=== PATIENT | female | born 1990 | race Caucasian/White ===

== ENCOUNTER 2016-08-05 14:31 | Inpatient (IN) | payer OTHER ==
[2016-08-05 14:55] VITALS: BMI 22.8
--- NOTE | 2016-08-05 16:40 | HP ---
CIWA Score - CIWA Score Nausea/Vomitin Muscle Tremors: 4-Moderate,w/Arms Extend Anxiety: 4-Mod. Anxious/Guarded Agitation: 4-Moderately Restless Paroxysmal Sweats: 3 Orientation: 2-Disoriented Date<2 days Tacttile Disturbances: 0-None Auditory Disturbances: 0-None Visual Disturbances: 0-None Headache: 0-None Present CIWA-Ar Total Score: 20 Admission ROS BHS - HPI Chief Complaint: Withdrawal sx. Allergies/Adverse Reactions: Allergies Allergy/AdvReac Type Severity Reaction Status Date / Time Fish Containing Products Allergy Unknown Verified 08/05/16 16:22 [Fish Product Derivatives] History of Present Illness: 26 y/o woman with hx. of benzodiazepine dependence is admitted for detox.Pt. has been in previous detox & currently attends [facility] in [facility] and takes methadone 155mg daily. Exam Limitations: No Limitations - Ebola screening Have you traveled outside of the country in the last 21 days: No Have you had contact with anyone from an Ebola affected area: No Have you been sick,other than usual withdrawal symptoms: No Do you have a fever: No - Review of Systems Constitutional: Diaphoresis EENT: reports: No Symptoms Reported Respiratory: reports: No Symptoms reported Cardiac: reports: No Symptoms Reported GI: reports: Nausea, Abdominal cramping : reports: No Symptoms Reported Musculoskeletal: reports: Back Pain Integumentary: reports: Sweating Neuro: reports: Tremors Endocrine: reports: No Symptoms Reported Hematology: reports: No Symptoms Reported Psychiatric: reports: No Sypmtoms Reported Other Systems: Reviewed and Negative Patient History - Patient Medical History Hx Anemia: No Hx Asthma: No Hx Chronic Obstructive Pulmonary Disease (COPD): No Hx Cancer: No Hx Cardiac Disorders: No Hx Congestive Heart Failure: No Hx Hypertension: No Hx Hypercholesterolemia: No Hx Pacemaker: No HX Cerebrovascular Accident: No Hx Seizures: No Hx Dementia: No Hx Diabetes: No Hx Gastrointestinal Disorders: No Hx Liver Disease: No Hx Genitourinary Disorders: No Hx Sexually Transmitted Disorders: No Hx Renal Disease (ESRD): No Hx Thyroid Disease: No Hx Human Immunodeficiency Virus (HIV): No Hx Hepatitis C: No Hx Depression: Yes (anxiety, panic attacks) Hx Suicide Attempt: No Hx Bipolar Disorder: No Hx Schizophrenia: No - Patient Surgical History Past Surgical History: Yes Hx Neurologic Surgery: No Hx Cataract Extraction: No Hx Cardiac Surgery: No Hx Lung Surgery: No Hx Breast Surgery: No Hx Breast Biopsy: No Hx Abdominal Surgery: No Hx Appendectomy: No Hx Cholecystectomy: No Hx Genitourinary Surgery: No Hx Section: No Hx Orthopedic Surgery: No Hx Hysterectomy: No Other Surgical History: tonsils removed 2002 Anesthesia Reaction: No - PPD History Previous Implant?: Yes Documented Results: Negative w/proof Date: 11/17/15 Results: 0 mm PPD to be Administered?: No - Reproductive History Last Menstrual Period: 07/12/16 Patient : No - Smoking Cessation Smoking history: Current every day smoker Have you smoked in the past 12 months: Yes Aproximately how many cigarettes per day: 10 Hx Chewing Tobacco Use: No Initiated information on smoking cessation: Yes 'Breaking Loose' booklet given: 08/05/16 - Substance & Tx. History Hx Alcohol Use: No Hx Substance Use: Yes Substance Use Type: Cocaine, Prescribed Hx Substance Use Treatment: Yes (detox) - Substances Abused Alprazolam (Xanax) Route: Oral Frequency: Daily Amount used: 16mg Age of first use: 19 Date of Last Use: 08/04/16 Crack Route: Smoking Frequency: Daily Amount used: 2 bags Age of first use: 20 Date of Last Use: 08/04/16 Family Disease History - Family Disease History Family Disease History: Heart Disease: Mother (hypertension), Other: Father ( opioid dependence on agonist therapy), Sister (methadone) Admission Physical Exam BHS - Vital Signs Vital Signs: Vital Signs - 24 hr 08/05/16 14:53 Temperature 99.5 F Pulse Rate 143 H Respiratory 20 Rate Blood Pressure 136/81 - Physical General Appearance: Yes: Tremorous, Sweating, Anxious HEENTM: Yes: Nasal Congestion Respiratory: Yes: Chest Non-Tender, Lungs Clear, Normal Breath Sounds Neck: Yes: Supple Breast: Yes: Breast Exam Deferred Cardiology: Yes: Regular Rate, S1, S2 Abdominal: Yes: Normal Bowel Sounds, Non Tender, Flat, Soft Genitourinary: Yes: Within Normal Limits Back: Yes: Within Normal Limits Musculoskeletal: Yes: Within Normal Limits Extremities: Yes: Tremors Neurological: Yes: Fully Oriented, Alert Integumentary: Yes: Diaphoresis Lymphatic: Yes: Within Normal Limits - Diagnostic (1) Opioid dependence on agonist therapy Current Visit: Yes Status: Acute (2) Sedative, hypnotic or anxiolytic dependence with withdrawal, uncomplicated Current Visit: Yes Status: Acute Cleared for Admission [facility] - Detox or Rehab [facility] Level of Care: Medically Managed Detox Regimen/Protocol: Valium [facility] Breath Alcohol Content Breath Alcohol Content: 0 Urine Pregancy Test - Result Urine Test Results: Negative- NO Line Present Urine Drug Screen - Results Drug Screen Negative: No Urine Drug Screen Results: AMADOU-Cocaine, BZO-Benzodiazepines, MTD-Methadone, TCA- Tricyclic Antidepress
[2016-08-05] MEDS ORDERED: NICOTINE POLACRILEX 2 MG GUM BC PRN (16:49)
[2016-08-05] MEDS ORDERED: guaiFENesin/D-METHORPHAN HB 10 ML UNIT-DOSE CUPS PO PRN (16:49)
[2016-08-05] MEDS ORDERED: MENTHOL/PHENOL 1 EACH UD MM PRN (16:49)
[2016-08-05] MEDS ORDERED: MAGNESIUM HYDROX 2400MG/30ML ORAL SUSPENSION 30 ML CUP PO PRN (16:49)
[2016-08-05] MEDS ORDERED: P-EPHED 60MG/TRIPROLIDI 2.5MG TABLET PO PRN (16:49)
[2016-08-05] MEDS ORDERED: MAGNESIUM CITRATE 300 ML BOTTLE PO PRN (16:49)
[2016-08-05] MEDS ORDERED: ACETAMINOPHEN 325 MG TABLET (FP) PO PRN (16:49)
[2016-08-05] MEDS ORDERED: IBUPROFEN 400 MG TABLET (FP) PO PRN (16:49)
[2016-08-05] MEDS ORDERED: diazePAM 5 MG TABLET PO ONE (16:49)
[2016-08-05] MEDS: NICOTINE 21 MG/24 HOURS TOPICAL PATCH TD SCH (17:53)
[2016-08-05] MEDS: THIAMINE HCL 100 MG TABLET (FP) PO SCH (22:30)
[2016-08-05] MEDS: diphenhydrAMINE HCL 50 MG CAPSULE PO PRN (22:30)
[2016-08-05] MEDS: diazePAM 5 MG TABLET PO SCH (22:31)
[2016-08-06] MEDS: diazePAM 5 MG TABLET PO SCH ×3 (05:47→22:27)
[2016-08-06] MEDS ORDERED: METHADONE HCL 5 MG TABLET (FOR DETOX USE ONLY) PO STA (09:06)
[2016-08-06 09:20] LABS: MCH 29.4 pg (25.7-33.7); MCHC 33.4 g/dl (32.0-36.0); MEAN CELL VOLUME 87.8 fl (80-96); PLATELET COUNT 202 K/MM3 (134-434); RDW 14.6 % (11.6-15.6); WHITE BLOOD COUNT 7.3 K/mm3 (4.0-10.0)
[2016-08-06 09:29] LABS: ALBUMIN 3.4 g/dl (3.4-5.0); ANION GAP 7 (8-16); BILIRUBIN,TOTAL 0.1 mg/dL (0.2-1.0); CALCIUM 8.7 mg/dL (8.5-10.1); CO2 30 mmol/L (21-32); COCKROFT - GAULT 110.9165; CREATININE 0.7 mg/dL (0.55-1.02); GLUCOSE,RANDOM 77 mg/dL (74-106); SGOT/AST 7 U/L (15-37); SGPT/ALT 15 U/L (12-78); TOT PROT 6.2 g/dl (6.4-8.2)
[2016-08-06 09:30] LABS: ALK PHOS 55 U/L (45-117)
[2016-08-06] MEDS: NICOTINE 21 MG/24 HOURS TOPICAL PATCH TD SCH (10:44)
[2016-08-06] MEDS: PRENATAL VITAMINS W/ FOLIC ACID TABLET (FP) PO SCH (10:44)
[2016-08-06] MEDS: diazePAM 5 MG TABLET PO PRN ×2 (10:44→17:18)
[2016-08-06] MEDS ORDERED: METHADONE 120 MG, METHADONE 30 MG, METHADONE 5 MG PO ONE (11:00)
[2016-08-06] MEDS ORDERED: METHADONE HCL 40 MG DISPERSABLE TABLET ONE (11:13)
[2016-08-06] MEDS ORDERED: METHADONE HCL 5 MG TABLET ONE (11:14)
[2016-08-06] MEDS ORDERED: METHADONE HCL 10 MG TABLET ONE (11:14)
--- NOTE | 2016-08-06 16:42 | PN ---
S CIWA - CIWA Score Nausea/Vomitin Muscle Tremors: 4-Moderate,w/Arms Extend Anxiety: 4-Mod. Anxious/Guarded Agitation: 4-Moderately Restless Paroxysmal Sweats: 4-Forehead w/Sweat Beads Orientation: 0-Oriented Tacttile Disturbances: 1-Very Mild Itch/Numbness Auditory Disturbances: 0-None Visual Disturbances: 0-None Headache: 2-Mild CIWA-Ar Total Score: 22 BHS Progress Note (SOAP) Subjective: Anxious, restless, sweating, tremor, interrupted sleep Objective: 08/06/16 16:41 Last Vital Signs Temp Pulse Resp BP Pulse Ox 98.1 F 90 16 109/76 08/06/16 14:23 08/06/16 14:23 08/06/16 14:23 08/06/16 14:23 Laboratory Tests 08/06/16 08/06/16 08/06/16 07:30 07:30 07:30 WBC 7.3 RBC 4.28 Hgb 12.6 Hct 37.6 MCV 87.8 MCHC 33.4 RDW 14.6 Plt Count 202 MPV 9.0 Sodium 141 Potassium 4.3 Chloride 104 Carbon Dioxide 30 Anion Gap 7 L BUN 11 D Creatinine 0.7 Creat Clearance w eGFR > 60 Random Glucose 77 Calcium 8.7 Total Bilirubin 0.1 L D AST 7 L D ALT 15 D Alkaline Phosphatase 55 Total Protein 6.2 L Albumin 3.4 RPR Titer Nonreactive Labs noted Assessment: 08/06/16 16:42 Withdrawal symptoms Plan: Continue detox
[2016-08-06 16:43] LABS: URINE APPEARANCE SLCLOUDY; URINE BILIRUBIN NEGATIVE (NEGATIVE); URINE BLOOD NEGATIVE (NEGATIVE); URINE COLOR YELLOW; URINE GLUCOSE (UA) NEGATIVE (NEGATIVE); URINE KETONE TRACE (NEGATIVE); URINE LEUK ESTERASE TRACE (NEGATIVE); URINE NITRITE NEGATIVE (NEGATIVE); URINE PROTEIN NEGATIVE (NEGATIVE); URINE UROBILINOGEN NEGATIVE E.U./dl (0.2-1.0)
[2016-08-06 16:47] LABS: URINE MUCUS RARE; URINE RBC 4 /hpf (0-3); URINE WBC 7 /hpf (3-5)
--- NOTE | 2016-08-06 17:17 | EKG ---
Test Reason : Blood Pressure : / mmHG Vent. Rate : 084 BPM Atrial Rate : 084 BPM P-R Int : 146 ms QRS Dur : 080 ms QT Int : 364 ms P-R-T Axes : 057 077 058 degrees QTc Int : 430 ms NORMAL SINUS RHYTHM NORMAL ECG NO PREVIOUS ECGS AVAILABLE Confirmed by ECTOR GORDON MD ([id number]) on 08/06/2016 5:17:13 PM Referred By: Confirmed By:ECTOR GORDON MD
[2016-08-06] MEDS: hydrOXYzine PAMOATE 50 MG CAPSULE (FP) PO PRN (22:27)
[2016-08-06] MEDS: THIAMINE HCL 100 MG TABLET (FP) PO SCH (22:27)
[2016-08-07] MEDS: diazePAM 5 MG TABLET PO PRN ×3 (03:14→17:15)
[2016-08-07] MEDS ORDERED: METHADONE HCL 40 MG DISPERSABLE TABLET ONE (04:20)
[2016-08-07] MEDS ORDERED: METHADONE HCL 10 MG TABLET ONE (04:20)
[2016-08-07] MEDS ORDERED: METHADONE HCL 5 MG TABLET ONE (04:21)
[2016-08-07] MEDS: METHADONE 120 MG, METHADONE 30 MG, METHADONE 5 MG PO SCH (05:25)
[2016-08-07] MEDS ORDERED: METHADONE HCL 5 MG TABLET (FOR DETOX USE ONLY) PO SCH (06:00)
--- NOTE | 2016-08-07 09:05 | CONSULT ---
[facility] Psychiatric Consult - Data Date of interview: 08/07/16 Admission source: tHIS IS 26 YEARS OLD FEMALE WITH N O PSYCHIATRIC HOSPITALIZATION HISTORY IN Identifying data: Opioids, Xanax, Cocaine and Nicotine Substance Abuse History: - Smoking Cessation. Smoking history: Current every day smoker. Have you smoked in the past 12 months: Yes. Aproximately how many cigarettes per day: 10. Hx Chewing Tobacco Use: No. Initiated information on smoking cessation: Yes. 'Breaking Loose' booklet given: 08/05/16. - Substance & Tx. History. Hx Alcohol Use: No. Hx Substance Use: Yes. Substance Use Type : Cocaine, Prescribed. Hx Substance Use Treatment: Yes (detox). - Substances Abused. Alprazolam (Xanax). Route: Oral. Frequency: Daily. Amount used: 16mg. Age of first use: 19. Date of Last Use: 08/04/16. Crack. Route: Smoking. Frequency: Daily. Amount used: 2 bags. Age of first use: 20. Date of Last Use: 08/04/16. Drug Screen Negative: No. Urine Drug Screen Results: AMADOU-Cocaine, BZO-Benzodiazepines, MTD-Methadone, TCA-Tricyclic Antidepress Medical History: MMTP 155MG PER DAY, Psychiatric History: Patient reports history of depression and anxiety, reports no medications taking prior to admission Physical/Sexual Abuse/Trauma History: Denies Additional Comment: Drug Screen Negative: No. Urine Drug Screen Results: AMADOU- Cocaine, BZO-Benzodiazepines, MTD-Methadone, TCA-Tricyclic Antidepress. Observation. Detox Unit Care Protocol Mental Status Exam - Mental Status Exam Alert and Oriented to: Person Cognitive Function: Fair Patient Appearance: Unkempt Mood: Apprehensive Affect: Appropriate Patient Behavior: Cooperative Speech Pattern: Appropriate Voice Loudness: Mildly Soft/Quiet Thought Process: Goal Oriented Thought Disorder: Being Controlled Hallucinations: Denies Suicidal Ideation: Denies Homicidal Ideation: Denies Insight/Judgement: Fair Sleep: Difficulty falling asleep Appetite: Weight gain Muscle strength/Tone: Normal Gait/Station: Shuffling Additional Comments: Observation. Detox Unit Care Protocol Psychiatric Findings - Problem List ([place] 1, 2,3) (1) Opioid dependence on agonist therapy Current Visit: Yes Status: Acute (2) Sedative, hypnotic or anxiolytic dependence with withdrawal, uncomplicated Current Visit: Yes Status: Acute (3) Opioid dependence Current Visit: No Status: Active (4) Cocaine dependence Current Visit: No Status: Acute (5) Nicotine dependence Current Visit: No Status: Acute (6) Sedative dependence Current Visit: No Status: Acute (7) Xanax use disorder, moderate Current Visit: No Status: Acute Comment: valium detox (8) Methadone maintenance therapy patient Current Visit: No Status: Chronic Comment: 160 mg last dose 11/15/15 waiting for verification (9) Anxiety and depression Current Visit: No Status: Suspected Comment: xanax (10) Drug-induced mood disorder Current Visit: Yes Status: Acute
[2016-08-07] MEDS: PRENATAL VITAMINS W/ FOLIC ACID TABLET (FP) PO SCH (10:53)
[2016-08-07] MEDS: diazePAM 5 MG TABLET PO SCH ×2 (10:53→22:25)
[2016-08-07] MEDS: NICOTINE 21 MG/24 HOURS TOPICAL PATCH TD SCH (10:54)
--- NOTE | 2016-08-07 12:31 | PN ---
S CIWA - CIWA Score Nausea/Vomitin Muscle Tremors: 2 Anxiety: 2 Agitation: 2 Paroxysmal Sweats: 3 Orientation: 0-Oriented Tacttile Disturbances: 1-Very Mild Itch/Numbness Auditory Disturbances: 0-None Visual Disturbances: 0-None Headache: 0-None Present CIWA-Ar Total Score: 12 S Progress Note (SOAP) Subjective: i feel better, sweats Objective: 08/07/16 12:30 Vital Signs Temperature 98.2 F 08/07/16 09:52 Pulse Rate 96 H 08/07/16 09:52 Respiratory Rate 20 08/07/16 09:52 Blood Pressure 122/72 08/07/16 09:52 O2 Sat by Pulse Oximetry (%) Laboratory Tests 08/06/16 08/06/16 08/06/16 07:30 07:30 07:30 WBC 7.3 RBC 4.28 Hgb 12.6 Hct 37.6 MCV 87.8 MCHC 33.4 RDW 14.6 Plt Count 202 MPV 9.0 Sodium 141 Potassium 4.3 Chloride 104 Carbon Dioxide 30 Anion Gap 7 L BUN 11 D Creatinine 0.7 Creat Clearance w eGFR > 60 Random Glucose 77 Calcium 8.7 Total Bilirubin 0.1 L D AST 7 L D ALT 15 D Alkaline Phosphatase 55 Total Protein 6.2 L Albumin 3.4 Urine Color Urine Appearance Urine pH Ur Specific [place] Urine Protein Urine Glucose (UA) Urine Ketones Urine Blood Urine Nitrite Urine Bilirubin Urine Urobilinogen Ur Leukocyte Esterase Urine RBC Urine WBC Ur Epithelial Cells Urine Mucus RPR Titer Nonreactive 08/06/16 16:32 WBC RBC Hgb Hct MCV MCHC RDW Plt Count MPV Sodium Potassium Chloride Carbon Dioxide Anion Gap BUN Creatinine Creat Clearance w eGFR Random Glucose Calcium Total Bilirubin AST ALT Alkaline Phosphatase Total Protein Albumin Urine Color Yellow Urine Appearance Slcloudy Urine pH 6.0 Ur Specific [place] 1.024 Urine Protein Negative Urine Glucose (UA) Negative Urine Ketones Trace H Urine Blood Negative Urine Nitrite Negative Urine Bilirubin Negative Urine Urobilinogen Negative Ur Leukocyte Esterase Trace H D Urine RBC 4 Urine WBC 7 Ur Epithelial Cells Moderate Urine Mucus Rare RPR Titer pt aox3 in nad ambulating Assessment: 08/07/16 12:30 withdrawal sx's Plan: cont. detox increase fluids
[2016-08-07] MEDS: hydrOXYzine PAMOATE 50 MG CAPSULE (FP) PO PRN (22:25)
[2016-08-07] MEDS: THIAMINE HCL 100 MG TABLET (FP) PO SCH (22:25)
[2016-08-08] MEDS ORDERED: METHADONE HCL 10 MG TABLET ONE (05:51)
[2016-08-08] MEDS ORDERED: METHADONE HCL 40 MG DISPERSABLE TABLET ONE (05:52)
[2016-08-08] MEDS ORDERED: METHADONE HCL 5 MG TABLET ONE (05:52)
[2016-08-08] MEDS: METHADONE 120 MG, METHADONE 30 MG, METHADONE 5 MG PO SCH (06:06)
[2016-08-08] MEDS: LOPERAMIDE HCL 2 MG CAPSULE PO PRN ×2 (06:25→16:00)
[2016-08-08] MEDS: MAG HYDROX/AL HYDROX/SIMETH 30 ML UNIT-DOSE CUP PO PRN (06:31)
--- NOTE | 2016-08-08 10:22 | PN ---
BHS Progress Note (SOAP) Subjective: sweats, diarrhea Objective: 08/08/16 09:19 Vital Signs Temperature 97.9 F 08/08/16 06:00 Pulse Rate 119 H 08/08/16 06:00 Respiratory Rate 16 08/08/16 06:00 Blood Pressure 125/72 08/08/16 06:00 O2 Sat by Pulse Oximetry (%) Laboratory Tests 08/06/16 08/06/16 08/06/16 07:30 07:30 07:30 WBC 7.3 RBC 4.28 Hgb 12.6 Hct 37.6 MCV 87.8 MCHC 33.4 RDW 14.6 Plt Count 202 MPV 9.0 Sodium 141 Potassium 4.3 Chloride 104 Carbon Dioxide 30 Anion Gap 7 L BUN 11 D Creatinine 0.7 Creat Clearance w eGFR > 60 Random Glucose 77 Calcium 8.7 Total Bilirubin 0.1 L D AST 7 L D ALT 15 D Alkaline Phosphatase 55 Total Protein 6.2 L Albumin 3.4 Urine Color Urine Appearance Urine pH Ur Specific [place] Urine Protein Urine Glucose (UA) Urine Ketones Urine Blood Urine Nitrite Urine Bilirubin Urine Urobilinogen Ur Leukocyte Esterase Urine RBC Urine WBC Ur Epithelial Cells Urine Mucus RPR Titer Nonreactive 08/06/16 16:32 WBC RBC Hgb Hct MCV MCHC RDW Plt Count MPV Sodium Potassium Chloride Carbon Dioxide Anion Gap BUN Creatinine Creat Clearance w eGFR Random Glucose Calcium Total Bilirubin AST ALT Alkaline Phosphatase Total Protein Albumin Urine Color Yellow Urine Appearance Slcloudy Urine pH 6.0 Ur Specific [place] 1.024 Urine Protein Negative Urine Glucose (UA) Negative Urine Ketones Trace H Urine Blood Negative Urine Nitrite Negative Urine Bilirubin Negative Urine Urobilinogen Negative Ur Leukocyte Esterase Trace H D Urine RBC 4 Urine WBC 7 Ur Epithelial Cells Moderate Urine Mucus Rare RPR Titer pt aox3 in nad ambulating Assessment: 08/08/16 09:20 withdrawal sx's Plan: cont. detox increase fluids imodium prn d/c in am
[2016-08-08] MEDS: diazePAM 5 MG TABLET PO SCH ×2 (10:48→22:19)
[2016-08-08] MEDS: NICOTINE 21 MG/24 HOURS TOPICAL PATCH TD SCH (10:48)
[2016-08-08] MEDS: PRENATAL VITAMINS W/ FOLIC ACID TABLET (FP) PO SCH (10:48)
[2016-08-08] MEDS: diazePAM 5 MG TABLET PO PRN (14:50)
[2016-08-08] MEDS: THIAMINE HCL 100 MG TABLET (FP) PO SCH (22:19)
[2016-08-08] MEDS: diphenhydrAMINE HCL 50 MG CAPSULE PO PRN (22:19)
[2016-08-09] MEDS ORDERED: METHADONE HCL 40 MG DISPERSABLE TABLET ONE (04:55)
[2016-08-09] MEDS ORDERED: METHADONE HCL 10 MG TABLET ONE (04:56)
[2016-08-09] MEDS ORDERED: METHADONE HCL 5 MG TABLET ONE (04:56)
[2016-08-09] MEDS: METHADONE 120 MG, METHADONE 30 MG, METHADONE 5 MG PO SCH (05:52)
[2016-08-09] MEDS: MAG HYDROX/AL HYDROX/SIMETH 30 ML UNIT-DOSE CUP PO PRN (06:07)
[2016-08-09 06:43] VITALS: BP 117/65; PULSE 106; TEMP 97.1
--- NOTE | 2016-08-09 08:49 | DS ---
[facility] Detox Discharge Summary Admission Date: 08/05/16 Discharge Date: 08/09/16 - Physical Exam Results Vital Signs: Vital Signs Temperature 97.1 F L 08/09/16 06:43 Pulse Rate 106 H 08/09/16 06:43 Respiratory Rate 20 08/09/16 06:43 Blood Pressure 117/65 08/09/16 06:43 O2 Sat by Pulse Oximetry (%) - Treatment Hospital Course: Detox Protocol Followed, Detoxed Safely, Responded well, Discharged Condition Good - Medication Discharge Medications: Ambulatory Orders Famotidine [Pepcid -] 20 mg PO BID #30 tablet 12/06/13 Methadone [Dolophine -] 155 mg PO DAILY 12/06/13 - Diagnosis (1) Cocaine dependence Status: Chronic Qualifiers: Complication of substance-induced condition: uncomplicated (2) Gastritis Status: Chronic Qualifiers: Gastritis type: unspecified gastritis (3) Nicotine dependence Status: Chronic Qualifiers: Nicotine product type: cigarettes Substance use status: uncomplicated Qualified Code(s): F17.210 - Nicotine dependence, cigarettes, uncomplicated (4) Opioid dependence on agonist therapy Status: Chronic (5) Sedative, hypnotic or anxiolytic dependence with withdrawal, uncomplicated Status: Chronic (6) Methadone maintenance therapy patient Status: Chronic (7) Anxiety and depression Status: Chronic - AMA Did Patient Leave Against Medical Advice: No
[2016-08-09] MEDS ORDERED: diazePAM 5 MG TABLET PO SCH (10:00)
== END 2016-08-09 08:35 | disposition home or self-care (01) | DRG 773 ==
LOC: YASAS 14:31 → Y6N 16:01
PROVIDERS: ADMIT Internal Medicine; ATTEND Internal Medicine Addiction Medicine
PROC: HZ2ZZZZ Detoxification Services for Substance Abuse Treatment (ICD-10-PCS; principal; 2016-08-09)
DX: F11.20 Opioid dependence, uncomplicated (principal); F13.230 Sedative, hypnotic or anxiolytic dependence with withdrawal, uncomplicated; F14.20 Cocaine dependence, uncomplicated; F17.210 Nicotine dependence, cigarettes, uncomplicated; F41.8 Other specified anxiety disorders; F19.24 Other psychoactive substance dependence with psychoactive substance-induced mood disorder; K29.60 Other gastritis without bleeding
CPT/HCPCS: 36415; 80053; 81003; 81015; 85027; 86593; 93005; 93010

== ENCOUNTER 2017-02-15 11:45 | Emergency (ER) | payer OTHER ==
--- NOTE | 2017-02-15 11:49 | PDOC ---
History of Present Illness - History of Present Illness Initial Comments: 02/15/17 11:47 Ms. Hadley is a 26 yo female with a significant past medical history of anxiety and heroin abuse (reportedly clean for 3 years) who presents to the emergency department 6 months with a 1 week history of nausea and vomiting. She says that her psychiatrist recently stopped her Clonapin prescription after finding out she was (finished 1 week ago) and that she started having the nausea and vomiting after. The patient denies chest pain, shortness of breath, headache and dizziness. Denies fever, chills, diarrhea and constipation. Denies dysuria, frequency, urgency and hematuria. Allergies: NKDA Past surgical history: Denies Social history: Prior heroin use currently on methadone <Selvin Mccormack - Last Filed: 02/15/17 12:14> <Wallace Davidson - Last Filed: 02/15/17 13:59> - General Chief Complaint: Nausea/Vomiting Stated Complaint: needs prescription refill for reglan,c/o vomiting Time Seen by Provider: 02/15/17 11:47 Past History - Past Medical History Anemia: No Asthma: No Cancer: No Cardiac Disorders: No CVA: No COPD: No CHF: No Dementia: No Diabetes: No GI Disorders: No Disorders: No HTN: No Hypercholesterolemia: No Kidney Stones: No Liver Disease: No Seizures: No Thyroid Disease: No - Surgical History Abdominal Surgery: No Appendectomy: No Cardiac Surgery: No Cholecystectomy: No Lung Surgery: No Neurologic Surgery: No Orthopedic Surgery: No - Reproductive History PID: No - Suicide/Smoking/Psychosocial Hx Smoking History: Smoker current status UNK Have you smoked in the past 12 months: No Number of Cigarettes Smoked Daily: 0 'Breaking Loose' booklet given: 08/05/16 Hx Alcohol Use: No Drug/Substance Use Hx: Yes Substance Use Type: Cocaine, Prescribed Hx Substance Use Treatment: Yes (detox) <Selvin Mccormack - Last Filed: 02/15/17 12:14> <Wallace Davidson - Last Filed: 02/15/17 13:59> - Past Medical History Allergies/Adverse Reactions: Allergies Allergy/AdvReac Type Severity Reaction Status Date / Time Fish Containing Products Allergy Unknown Verified 02/15/17 11:47 [Fish Product Derivatives] Home Medications: Ambulatory Orders Methadone [Dolophine -] 175 mg PO DAILY 12/06/13 Clonazepam [Klonopin] 1 mg PO DAILY 02/15/17 Metoclopramide HCl [Reglan] 10 mg PO TID PRN 02/15/17 Metoclopramide HCl [Reglan] 10 mg PO TID PRN #21 tablet 02/15/17 Review of Systems - Review of Systems Comments:: 02/15/17 11:48 GENERAL/CONSTITUTIONAL: No fever or chills. No weakness. HEAD, EYES, EARS, NOSE AND THROAT: No change in vision. No ear pain or discharge. No sore throat. CARDIOVASCULAR: No chest pain or shortness of breath RESPIRATORY: No cough, wheezing, or hemoptysis. GASTROINTESTINAL: +1 week of intermittent nausea and vomiting. No diarrhea or constipation. GENITOURINARY: No dysuria, frequency, or change in urination. MUSCULOSKELETAL: No joint or muscle swelling or pain. No neck or back pain. SKIN: No rash NEUROLOGIC: No headache, vertigo, loss of consciousness, or change in strength/ sensation. ENDOCRINE: No increased thirst. No abnormal weight change HEMATOLOGIC/LYMPHATIC: No anemia, easy bleeding, or history of blood clots. ALLERGIC/IMMUNOLOGIC: No hives or skin allergy. <Selvin Mccormack - Last Filed: 02/15/17 12:14> *Physical Exam - Physical Exam Comments: 02/15/17 11:49 GENERAL: Awake, alert, and fully oriented, in no acute distress HEAD: No signs of trauma, normocephalic, atraumatic EYES: PERRLA, EOMI, sclera anicteric, conjunctiva clear ENT: Auricles normal inspection, hearing grossly normal, nares patent, oropharynx clear without exudates. Moist mucosa NECK: Normal ROM, supple, no lymphadenopathy, JVD, or masses LUNGS: No distress, speaks full sentences, clear to auscultation bilaterally HEART: +Slightly tachycardic, normal rhythm, normal S1 and S2, no murmurs, rubs or gallops, peripheral pulses normal and equal bilaterally. ABDOMEN: Soft, nontender, normoactive bowel sounds. No guarding, no rebound. No masses EXTREMITIES: Normal inspection, Normal range of motion, no edema. No clubbing or cyanosis. NEUROLOGICAL: Cranial nerves II through XII grossly intact. Normal speech, normal gait, no focal sensorimotor deficits SKIN: Warm, Dry, normal turgor, no rashes or lesions noted. 02/15/17 12:19 <Selvin Mccormack - Last Filed: 02/15/17 12:14> - Vital Signs Last Vital Signs Temp Pulse Resp BP Pulse Ox 98.4 F 92 H 16 137/78 100 02/15/17 11:47 02/15/17 11:47 02/15/17 11:47 02/15/17 11:47 02/15/17 11:47 <Wallace Davidson - Last Filed: 02/15/17 13:59> ED Treatment Course - LABORATORY CBC & Chemistry Diagram: 02/15/17 12:30 02/15/17 12:30 - ADDITIONAL ORDERS Additional order review: Laboratory Results 02/15/17 02/15/17 12:30 12:20 Sodium 133 L Potassium 4.2 Chloride 100 Carbon Dioxide 26 Anion Gap 7 L BUN 7 D Creatinine 0.5 L D Creat Clearance w eGFR > 60 Random Glucose 88 Calcium 9.1 Total Bilirubin 0.3 D AST 16 D ALT 13 D Alkaline Phosphatase 63 Total Protein 6.7 Albumin 3.5 Urine Color Yellow Urine Appearance Clear Urine pH 7.0 Ur Specific [place] 1.015 Urine Protein Negative Urine Glucose (UA) Negative Urine Ketones Negative Urine Blood Negative Urine Nitrite Negative Urine Bilirubin Negative Urine Urobilinogen 0.2 Ur Leukocyte Esterase Trace H Urine RBC 0-3 Urine WBC 0-3 /hpf Ur Epithelial Cells Few Urine Bacteria Few 02/15/17 12:30 RBC 3.94 MCV 88.9 MCHC 34.2 RDW 13.2 D MPV 8.9 Neutrophils % 78.6 D Lymphocytes % 17.7 D Monocytes % 3.2 L Eosinophils % 0.2 D Basophils % 0.3 - Medications Given in the ED: ED Medications Discontinued Medications Generic Name Dose Route Start Last Admin Trade Name Freq PRN Reason Stop Dose Admin Sodium Chloride 1,000 mls @ 1,000 mls/hr 02/15/17 12:13 02/15/17 12:30 Normal Saline - IV 02/15/17 13:12 1,000 mls/hr .Q1H ONE Administration Ondansetron HCl 4 mg 02/15/17 12:13 02/15/17 13:07 Zofran Injection IVPUSH 02/15/17 12:14 4 mg ONCE ONE Administration <Wallace Davidson - Last Filed: 02/15/17 13:59> *DC/Admit/Observation/Transfer <Selvin Mccormack - Last Filed: 02/15/17 12:14> - Discharge Dispostion Admit: No <Wallace Davidson - Last Filed: 02/15/17 13:59> Diagnosis at time of Disposition: Nausea and vomiting during - Discharge Dispostion Disposition: HOME Condition at time of disposition: Improved - Referrals Referrals: Cory Newberry [Non Staff, Medical] - - Patient Instructions Printed Discharge Instructions: DI for Nausea -- Adult Additional Instructions: Return to the emergency department immediately with ANY new, persistent or worsening symptoms including persistent vomiting, headache, dzizziness, vaginal bleeding, abdominal pain or other concerns. Make sure you are well hydrated. You MUST call and follow up with your billing administrator as scheduled on Sunday for further evaluation of your symptoms. Results were discussed with you. Please make sure your doctor reviews the results of your emergency evaluation. Print Language: MOZAMBICAN
[2017-02-15 11:55] VITALS: TEMP 98.4; BMI 22.8
[2017-02-15] MEDS ORDERED: SODIUM CHLORIDE 1,000 ML IV ONE (12:13)
[2017-02-15] MEDS ORDERED: ONDANSETRON 4 MG/2 ML VIAL IVPUSH ONE (12:13)
[2017-02-15 12:29] LABS: URINE APPEARANCE Clear; URINE BILIRUBIN Negative (NEGATIVE); URINE BLOOD Negative (NEGATIVE); URINE GLUCOSE (UA) Negative (NEGATIVE); URINE KETONE Negative (NEGATIVE); URINE NITRITE Negative (NEGATIVE); URINE PROTEIN Negative (NEGATIVE); URINE UROBILINOGEN 0.2 (0.2-1.0)
[2017-02-15 12:30] LABS: URINE BACTERIA FEW /hpf (NEGATIVE); URINE COLOR YELLOW; URINE LEUK ESTERASE TRACE (NEGATIVE); URINE RBC 0-3 /hpf (0-3); URINE WBC 0-3 /hpf (3-5)
--- NOTE | 2017-02-15 12:40 | PDOC ---
Attending Attestation - Resident Resident Name: Selvin Mccormack - ED Attending Attestation I have performed the following: I have examined & evaluated the patient, The case was reviewed & discussed with the resident, I agree w/resident's findings & plan, Exceptions are as noted - HPI HPI: 02/15/17 12:40 26y F hx of anxiety being titrated off of klonapin, former IVDU currently on methadone, at approx 6 months gestation presents with nausea/vomiting for 3 -4 days. Pt states she has been feeling naues throughout her , and has been taking reglan for relief. She ran out of her meds 3-4 days ago, an dstates she has been nauseus since then. denies any abd pain, fever/chills, abd pain, new back pain, vag bleeding. pt currently on methadone pts exam noted for ENT: mild dry mucus membrnes abdominal : abd soft nontender cardiac: cardiac exam reveals no m/r/g extreimties: no pitting edema in the lower extremities will hydrate will ck basic labs, urine will give a dose of antiemetic - Physicial Exam PE: 02/17/17 12:36 see above - Medical Decision Making 02/15/17 13:52 pts labs reviewed unremarakble pt feeling improved gia dc the pt with pmd fu return precautions were discussed
[2017-02-15 12:42] LABS: BASOPHIL 0.3 % (0-2.0); EOSINOPHIL 0.2 % (0-4.5); MCH 30.4 pg (25.7-33.7); MCHC 34.2 g/dl (32.0-36.0); MEAN CELL VOLUME 88.9 fl (80-96); MEAN PLT VOLUME 8.9 fl (7.5-11.1); NEUTROPHILS 78.6 % (42.8-82.8); PLATELET COUNT 263 K/MM3 (134-434); RDW 13.2 % (11.6-15.6); WHITE BLOOD COUNT 8.8 K/mm3 (4.0-10.8)
[2017-02-15] MEDS ORDERED: ONDANSETRON 4 MG/2 ML VIAL ONE (13:05)
[2017-02-15 13:19] LABS: ALBUMIN 3.5 g/dl (3.5-5.0); ALK PHOS 63 U/L (32-92); ANION GAP 7 (8-16); CALCIUM 9.1 mg/dl (8.4-10.2); CO2 26 mmol/L (22-28); CREATININE 0.5 mg/dl (0.6-1.3); GLUCOSE,RANDOM 88 mg/dl (74-106); SGOT/AST 16 U/L (10-42); SGPT/ALT 13 U/L (10-40); TOT PROT 6.7 g/dl (6.4-8.3)
[2017-02-15 13:36] LABS: BILIRUBIN,TOTAL 0.3 mg/dl (0.2-1.0)
[2017-02-15 14:08] VITALS: BP 117/58; PULSE 82
== END 2017-02-15 14:08 | disposition home or self-care (01) ==
LOC: FER 11:45
PROC: 3E033GC Introduction of Other Therapeutic Substance into Peripheral Vein, Percutaneous Approach (ICD-10-PCS; principal; 2017-02-15)
PROC: 3E0337Z Introduction of Electrolytic and Water Balance Substance into Peripheral Vein, Percutaneous Approach (ICD-10-PCS; 2017-02-15)
DX: O26.899 Other specified pregnancy related conditions, unspecified trimester (principal); Z3A.24 24 weeks gestation of pregnancy
CPT/HCPCS: 36415; 80053; 81003; 81015; 85025; 99282-25